=== PATIENT | male | born 1995 | race African-American/Black ===

== ENCOUNTER 2022-01-24 08:39 | Emergency (ER) | payer SELFPAY ==
--- NOTE | ~2022-01-24 | XR_ITS ---
EXAMINATION: XR ankle RT min 3V DATE: 01/24/2022 09:17 INDICATION: Medial right ankle pain TECHNIQUE: Anteroposterior, oblique, mortise, and lateral views of the right ankle were obtained. COMPARISON: None. FINDINGS: Alignment is normal. No fracture. Joint spaces are well maintained. No ankle joint effusion. Soft t issue swelling about the right ankle most prominent about the lateral malleolus and anteriorly. IMPRESSION: 1. No osseous abnormality. Reviewed, dictated and finalized at location A. IMPRESSION: 1. No osseous abnormality.
[2022-01-24 08:40] VITALS: BP 112/72; PULSE 84; RESP 16; TEMP 36.6; O2SAT 98
--- NOTE | 2022-01-24 08:57 | ED.LOWEXIN ---
HPI - Extremity Injury (Lower) General Chief Complaint: Extremity Injury, Lower Stated Complaint: ANKLE PAIN Time Seen by Provider: 01/24/22 08:57 Source: patient, family and RN notes reviewed Mode of arrival: ambulatory Limitations: no limitations History of Present Illness HPI Narrative: Patient states that he jumped off his porch yesterday and when he landed he twisted his ankle. He said it was an inversion type injury. He said his pain has gotten worse in his ankle and is more difficult to walk on today. complaint: ankle injury Onset (ago): day(s) (1) Injury: Right: ankle Type of Injury: inversion Place: home Severity: moderate Relieving factors: rest Exacerbating factors: weight bearing, movement and palpation Context: fall and jumping Associated symptoms: swelling, numbness and able to partially bear weight Other symptoms: none Related Data Home Medications Medication Instructions Recorded Confirmed No Home Medications 01/24/22 01/24/22 Allergies Allergy/AdvReac Type Severity Reaction Status Date / Time No Known Allergies Allergy Verified 01/24/22 08:48 Review of Systems Review of Systems: All systems reviewed & are unremarkable except as noted in HPI and below PMFSH Past Medical History Medical History (Updated 01/24/22 @ 09:30 by Bradley Terrazas MD) No active medical problems Social History Social History (Updated 01/24/22 @ 09:02 by Bradley Terrazas MD) Smoking status: Never smoker Alcohol intake: never Substance use: current Substance use type: marijuana Exam Const: General: healthy appearing, no acute distress and alert Nutritional Appearance: well nourished Orientation/consciousness: patient oriented x3 Limitations: no limitations HENMT: Head: normal to inspection Ears: external ears normal Face/Nose/Sinus: Normal external nose present Face and sinus: normal facial exam Eyes: Conjunctivae: conjunctivae normal Pupils: Equal, round and reactive pupils present EOM: EOMs intact bilaterally Neck: Neck: normal visual inspection Resp: Effort & Inspection: normal respiratory effort Auscultation: clear to auscultation bilaterally Cardio: Rate: regular rate Rhythm: regular rhythm GI: GI Palp: Yes Soft to palpation and No Tenderness to palpation present (GI) Auscultation: normal bowel sounds Back/Spine/Pelvis: Cervical Spine: cervical ROM normal Thoracic/Lumbar Spine: thoraco-lumbar ROM normal Skin: General skin exam: normal color Rashes: no rashes Wounds: no wounds Neuro: General: patient oriented x3, moves all extremities, no focal motor deficits and CN's II-XI intact bilaterally Speech: normal speech Extrem: General: no clubbing, cyanosis or edema Right lower extremity: ankle Details: tenderness Location: of the lateral malleolus, of the medial malleolus and of the anterior talofibular ligament, swelling Details: laterally and medially and abnormal ROM Details: pain with active ROM Details: with inversion and with eversion and pain with passive ROM Details: with inversion and with eversion Course Vital Signs Vital signs: Vital Signs Temperature 36.6 C 01/24/22 08:40 Pulse Rate 84 01/24/22 08:40 Respiratory Rate 16 01/24/22 08:40 Blood Pressure 112/72 01/24/22 08:40 Pulse Oximetry 98 01/24/22 08:40 Oxygen Delivery Room Air 01/24/22 08:40 Temperature 36.6 C 01/24/22 09:42 Pulse Rate 76 01/24/22 09:42 Respiratory Rate 16 01/24/22 09:42 Blood Pressure 110/62 01/24/22 09:42 Pulse Oximetry 100 01/24/22 09:42 Oxygen Delivery Room Air 01/24/22 09:42 Discharge Plan Discharge Clinical Impression: Ankle sprain and strain Patient Disposition: Home, Self-Care Condition: Stable Instructions: Ankle Sprain (ED) Additional Instructions: ice elevate, use Tylenol and or Motrin as needed for pain. Prescriptions: No Action No Home Medications Follow-up/Referrals: UNKNOWN,DOCTOR [Prima
--- NOTE | 2022-01-24 09:41 | PC.NURSE ---
+PMS POST SPLINT APPLICATION
[2022-01-24 09:42] VITALS: BP 110/62; PULSE 76; RESP 16; TEMP 36.6; O2SAT 100
== END 2022-01-24 09:40 | disposition home or self-care (01) ==
LOC: CHSED 09:31
PROVIDERS: Emergency Provider Emergency Medicine
DX: S93.401A Sprain of unspecified ligament of right ankle, initial encounter (principal)
CPT/HCPCS: 29515; 73610; 99283; L4350